=== PATIENT | male | born 1945 | race Caucasian/White ===

== ENCOUNTER 2016-12-28 08:55 | Outpatient (CLI) | payer MEDICARE, OTHER | END 2016-12-28 08:56 | disposition home or self-care (01) | DX: E11.9 Type 2 diabetes mellitus without complications (principal); Z79.899 Other long term (current) drug therapy ==

== ENCOUNTER 2018-04-23 12:42 | Outpatient (CLI) | payer MEDICARE, OTHER ==
[2018-04-23 14:00] LABS: HEMOGLOBIN A1C 0.86 g/dL; HEMOGLOBIN A1C % 7.1 % (4.6-6.2)
== END 2018-04-23 12:43 | disposition home or self-care (01) ==
LOC: LAB 12:42
PROVIDERS: ATTEND Internal Medicine
DX: Z12.5 Encounter for screening for malignant neoplasm of prostate (principal); E11.9 Type 2 diabetes mellitus without complications; Z79.899 Other long term (current) drug therapy
CPT/HCPCS: 36415; 83036; G0103; 84153

== ENCOUNTER → 2018-06-26 | Outpatient (CLI) | payer MEDICARE, OTHER ==
[2018-06-26 18:23] LABS: BILIRUBIN,URINE NEGATIVE (NEGATIVE); CLARITY,URINE CLEAR (CLEAR); GLUCOSE, URINE (UA) NEGATIVE (NEGATIVE); KETONES,URINE (UA) NEGATIVE (NEGATIVE); LEUKOCYTE ESTERASE, URINE NEGATIVE (NEGATIVE); NITRITE,URINE NEGATIVE (NEGATIVE); OCCULT BLOOD,URINE TRACE-INTA (NEGATIVE); PROTEIN,URINE NEGATIVE (NEGATIVE); UROBILINOGEN,URINE 0.2 (NORMAL) E.U./dL (NORMAL)
[2018-06-26 19:10] LABS: BACTERIA,URINE None Seen /HPF (None Seen); RBC,URINE 0-5 /HPF (0-5); SQUAMOUS EPITHELIAL CELL,UR RARE Squamous (<= Few)
== END ==
LOC: LAB.R 08:00
PROVIDERS: ATTEND Physician Assistant Medical
DX: R31.9 Hematuria, unspecified (principal)
CPT/HCPCS: 81001; 87086

== ENCOUNTER 2018-10-04 09:03 | Outpatient (CLI) | payer MEDICARE, OTHER ==
[2018-10-04 09:34] LABS: ALBUMIN 4.2 g/dL (3.2-5.5); ALBUMIN/GLOBULIN RATIO 1.1 (1.0-2.2); ALKALINE PHOSPHATASE 47 IU/L (42-121); ALT ALANINE AMINOTRANSFERASE 41 IU/L (10-60); AST ASPARTATE AMINOTRANSFERASE 50 IU/L (10-42); BILIRUBIN,TOTAL 0.6 mg/dL (0.2-1.0); BUN - BLOOD UREA NITROGEN 12 mg/dL (6-20); CALCIUM 9.3 mg/dL (8.5-10.3); CARBON DIOXIDE - CO2 26 mmol/L (21-32); CHLORIDE 102 mmol/L (101-111); CHOL/HDL RATIO 3.1 (<5.0); CHOLESTEROL 122 mg/dL; CREATININE 0.9 mg/dL (0.6-1.2); GFR - MDRD 82 (>89); GLUCOSE 145 mg/dL (70-100); HDL CHOLESTEROL 40 mg/dL; LDL CHOLESTEROL,CALCULATED 57 mg/dL; LDL/HDL RATIO 1.4 (<3.6); SODIUM 137 mmol/L (135-145); TOTAL PROTEIN 7.9 g/dL (6.7-8.2); VLDL CHOLESTEROL 25 mg/dL
== END 2018-10-04 09:04 | disposition home or self-care (01) ==
LOC: LAB 09:03
PROVIDERS: ATTEND Internal Medicine Cardiovascular Disease
DX: I10 Essential (primary) hypertension (principal); E78.2 Mixed hyperlipidemia
CPT/HCPCS: 36415; 80053; 80061; 83721

== ENCOUNTER 2018-10-13 08:00 | Outpatient (CLI) | payer MEDICARE, OTHER ==
[2018-10-13 16:02] LABS: HB2 TOTAL 15.6 g/dL; HEMOGLOBIN A1C 0.78 g/dL; HEMOGLOBIN A1C % 6.7 % (4.6-6.2)
== END 2018-10-13 23:59 | disposition home or self-care (01) ==
LOC: LAB.R 08:00
PROVIDERS: ATTEND Physician Assistant Medical
DX: E11.9 Type 2 diabetes mellitus without complications (principal); Z79.899 Other long term (current) drug therapy
CPT/HCPCS: 83036

== ENCOUNTER 2019-04-06 09:59 | Outpatient (CLI) | payer MEDICARE, OTHER ==
[2019-04-06 10:18] LABS: CALCIUM 9.8 mg/dL (8.5-10.3); CREATININE 0.9 mg/dL (0.6-1.2)
[2019-04-06 10:34] LABS: HB2 TOTAL 15.1 g/dL; HEMOGLOBIN A1C 0.78 g/dL; HEMOGLOBIN A1C % 6.9 % (4.6-6.2)
== END 2019-04-06 10:00 | disposition home or self-care (01) ==
LOC: LAB 09:59
PROVIDERS: ATTEND Family Medicine
DX: E11.9 Type 2 diabetes mellitus without complications (principal)
CPT/HCPCS: 36415; 80048; 83036

== ENCOUNTER 2020-07-19 09:18 | Outpatient (CLI) | payer MEDICARE, OTHER ==
[2020-07-19 09:31] LABS: BASOPHILS % (AUTO) 0.6 %; EOSINOPHILS # (AUTO) 0.2 10^3/uL (0.0-0.7); EOSINOPHILS % (AUTO) 3.4 %; HGB - HEMOGLOBIN 14.7 g/dL (14.0-18.0); LYMPHOCYTES # (AUTO) 1.7 10^3/uL (1.5-3.5); LYMPHOCYTES % (AUTO) 25.7 %; MEAN CORPUSCULAR HEMOGLOBIN 32.2 pg (27.0-31.0); MEAN CORPUSCULAR HGB CONC 32.9 g/dL (32.0-36.0); MEAN CORPUSCULAR VOLUME 97.8 fL (80.0-94.0); MEAN PLATELET VOLUME 9.9 fL (7.4-11.4); MONOCYTES # (AUTO) 0.8 10^3/uL (0.0-1.0); MONOCYTES % (AUTO) 11.3 %; NEUTROPHILS % (AUTO) 58.7 %; PLT - PLATELET COUNT 214 10^3/uL (130-450); RED BLOOD COUNT 4.57 10^6/uL (4.70-6.10); RED CELL DISTRIBUTION WIDTH 12.2 % (12.0-15.0); WHITE BLOOD COUNT 6.7 x10^3/uL (4.8-10.8)
[2020-07-19 09:48] LABS: ALBUMIN 4.1 g/dL (3.2-5.5); ALBUMIN/GLOBULIN RATIO 1.3 (1.0-2.2); ALKALINE PHOSPHATASE 45 IU/L (42-121); ALT ALANINE AMINOTRANSFERASE 38 IU/L (10-60); AST ASPARTATE AMINOTRANSFERASE 46 IU/L (10-42); BILIRUBIN,TOTAL 0.8 mg/dL (0.2-1.0); BUN - BLOOD UREA NITROGEN 9 mg/dL (6-20); CALCIUM 9.1 mg/dL (8.5-10.3); CARBON DIOXIDE - CO2 25 mmol/L (21-32); CHLORIDE 102 mmol/L (101-111); CHOL/HDL RATIO 3.5 (<5.0); CHOLESTEROL 142 mg/dL; GLUCOSE 149 mg/dL (70-100); HDL CHOLESTEROL 41 mg/dL; LDL CHOLESTEROL,CALCULATED 75 mg/dL; LDL/HDL RATIO 1.8 (<3.6); SODIUM 136 mmol/L (135-145); TOTAL PROTEIN 7.2 g/dL (6.7-8.2); VLDL CHOLESTEROL 26 mg/dL
[2020-07-19 09:56] LABS: CREATININE,URINE 102.4 mg/dL; MICROALBUM/CREATININE RATIO,UR 10.7 ug/mg (<30.0); MICROALBUMIN,URINE 1.1 mg/dL (0-300.0)
[2020-07-19 10:27] LABS: HEMOGLOBIN A1c% 6.8 % (4.27-6.07)
== END 2020-07-19 09:19 | disposition home or self-care (01) ==
LOC: LAB 09:18
PROVIDERS: ATTEND Nurse Practitioner Family
DX: Z00.00 Encounter for general adult medical examination without abnormal findings (principal); I10 Essential (primary) hypertension; E78.2 Mixed hyperlipidemia; E11.9 Type 2 diabetes mellitus without complications
CPT/HCPCS: 36415; 80053; 80061; 82043; 82570; 83036; 83721; 84443; 85025

== ENCOUNTER 2021-04-09 19:53 | Outpatient (CLI) | payer MEDICARE, OTHER | END 2021-04-09 19:54 | disposition short-term general hospital (02) | LOC: EMS 19:53 | DX: R55 Syncope and collapse (principal) | CPT/HCPCS: A0425; A0427 ==

== ENCOUNTER 2021-10-18 10:39 | Outpatient (CLI) | payer MEDICARE, OTHER ==
[2021-10-18 18:26] LABS: MICROALBUM/CREATININE RATIO,UR 6.6 ug/mg (<30.0); MICROALBUMIN,URINE 1.4 mg/dL (0-300.0)
[2021-10-18 18:29] LABS: BASOPHILS # (AUTO) 0.1 10^3/uL (0.0-0.1); BASOPHILS % (AUTO) 0.6 %; EOSINOPHILS # (AUTO) 0.2 10^3/uL (0.0-0.7); EOSINOPHILS % (AUTO) 2.7 %; HCT - HEMATOCRIT 42.2 % (42.0-52.0); HGB - HEMOGLOBIN 13.3 g/dL (14.0-18.0); LYMPHOCYTES % (AUTO) 24.2 %; MEAN CORPUSCULAR HEMOGLOBIN 29.9 pg (27.0-31.0); MEAN CORPUSCULAR HGB CONC 31.5 g/dL (32.0-36.0); MEAN CORPUSCULAR VOLUME 94.8 fL (80.0-94.0); MEAN PLATELET VOLUME 10.7 fL (7.4-11.4); MONOCYTES # (AUTO) 0.8 10^3/uL (0.0-1.0); MONOCYTES % (AUTO) 9.9 %; NEUTROPHILS # (AUTO) 5.3 10^3/uL (1.5-6.6); NEUTROPHILS % (AUTO) 62.4 %; PLT - PLATELET COUNT 247 10^3/uL (130-450); RED BLOOD COUNT 4.45 10^6/uL (4.70-6.10); RED CELL DISTRIBUTION WIDTH 12.6 % (12.0-15.0); WHITE BLOOD COUNT 8.4 x10^3/uL (4.8-10.8)
[2021-10-18 18:59] LABS: ALBUMIN 4.1 g/dL (3.2-5.5); ALBUMIN/GLOBULIN RATIO 1.2 (1.0-2.2); ALKALINE PHOSPHATASE 41 IU/L (42-121); ALT ALANINE AMINOTRANSFERASE 33 IU/L (10-60); AST ASPARTATE AMINOTRANSFERASE 42 IU/L (10-42); BILIRUBIN,TOTAL 0.6 mg/dL (0.2-1.0); BUN - BLOOD UREA NITROGEN 14 mg/dL (6-20); CALCIUM 9.3 mg/dL (8.5-10.3); CARBON DIOXIDE - CO2 28 mmol/L (21-32); CHLORIDE 102 mmol/L (101-111); CHOL/HDL RATIO 2.7 (<5.0); CHOLESTEROL 107 mg/dL; GFR - MDRD 72 (>89); GLUCOSE 136 mg/dL (70-100); HDL CHOLESTEROL 40 mg/dL; LDL CHOLESTEROL,CALCULATED 39 mg/dL; POTASSIUM 4.7 mmol/L (3.5-5.0); SODIUM 139 mmol/L (135-145); TOTAL PROTEIN 7.4 g/dL (6.7-8.2); TRIGLYCERIDES 138 mg/dL; VLDL CHOLESTEROL 28 mg/dL
[2021-10-19 17:17] LABS: ESTIMATED AVERAGE GLUCOSE 183 mg/dL (70-100)
== END 2021-10-18 23:59 | disposition home or self-care (01) ==
LOC: LAB.WCP 10:39
PROVIDERS: ATTEND Family Medicine
DX: E11.9 Type 2 diabetes mellitus without complications (principal); Z12.5 Encounter for screening for malignant neoplasm of prostate; N40.0 Benign prostatic hyperplasia without lower urinary tract symptoms
CPT/HCPCS: 36415; 80053; 80061; 82043; 82570; 83036; 85025; G0103; 83721; 84153

== ENCOUNTER 2022-02-23 15:04 | Outpatient (CLI) | payer MEDICARE, OTHER ==
[2022-02-23 15:38] LABS: CALCIUM 9.8 mg/dL (8.5-10.3); CREATININE 1.1 mg/dL (0.6-1.2); POTASSIUM 4.7 mmol/L (3.5-5.0)
[2022-02-23 15:55] LABS: MICROALBUMIN,URINE 1.1 mg/dL (0-300.0)
[2022-02-23 22:11] LABS: ESTIMATED AVERAGE GLUCOSE 140 mg/dL (70-100); HEMOGLOBIN A1c% 6.5 % (4.27-6.07)
== END 2022-02-23 15:05 | disposition home or self-care (01) ==
LOC: LAB 15:04
PROVIDERS: ATTEND Family Medicine
DX: E11.65 Type 2 diabetes mellitus with hyperglycemia (principal)
CPT/HCPCS: 36415; 80048; 82043; 82570; 83036

== ENCOUNTER 2022-11-23 08:54 | Outpatient (CLI) | payer MEDICARE, OTHER ==
[2022-11-23 09:16] LABS: BASOPHILS # (AUTO) 0.1 10^3/uL (0.0-0.1); BASOPHILS % (AUTO) 0.6 %; EOSINOPHILS # (AUTO) 0.4 10^3/uL (0.0-0.7); EOSINOPHILS % (AUTO) 4.1 %; HCT - HEMATOCRIT 42.1 % (42.0-52.0); HGB - HEMOGLOBIN 13.7 g/dL (14.0-18.0); LYMPHOCYTES # (AUTO) 2.5 10^3/uL (1.5-3.5); LYMPHOCYTES % (AUTO) 26.2 %; MEAN CORPUSCULAR HEMOGLOBIN 30.1 pg (27.0-31.0); MEAN CORPUSCULAR HGB CONC 32.5 g/dL (32.0-36.0); MEAN CORPUSCULAR VOLUME 92.5 fL (80.0-94.0); MEAN PLATELET VOLUME 9.9 fL (7.4-11.4); MONOCYTES % (AUTO) 10.4 %; NEUTROPHILS # (AUTO) 5.5 10^3/uL (1.5-6.6); NEUTROPHILS % (AUTO) 58.4 %; PLT - PLATELET COUNT 234 10^3/uL (130-450); RED BLOOD COUNT 4.55 10^6/uL (4.70-6.10); RED CELL DISTRIBUTION WIDTH 12.7 % (12.0-15.0); WHITE BLOOD COUNT 9.4 x10^3/uL (4.8-10.8)
[2022-11-23 09:34] LABS: CREATININE,URINE 95.3 mg/dL; MICROALBUM/CREATININE RATIO,UR 6.3 ug/mg (<30.0); MICROALBUMIN,URINE 0.6 mg/dL (0-300.0)
[2022-11-23 09:36] LABS: ALBUMIN/GLOBULIN RATIO 1.2 (1.0-2.2); ALKALINE PHOSPHATASE 43 IU/L (42-121); ALT ALANINE AMINOTRANSFERASE 25 IU/L (10-60); AST ASPARTATE AMINOTRANSFERASE 35 IU/L (10-42); BILIRUBIN,TOTAL 0.8 mg/dL (0.2-1.0); BUN - BLOOD UREA NITROGEN 11 mg/dL (6-20); CALCIUM 9.5 mg/dL (8.5-10.3); CARBON DIOXIDE - CO2 26 mmol/L (21-32); CHLORIDE 103 mmol/L (101-111); CHOL/HDL RATIO 2.8 (<5.0); CHOLESTEROL 130 mg/dL; GFR - MDRD 72 (>89); GLUCOSE 139 mg/dL (70-100); HDL CHOLESTEROL 47 mg/dL; LDL CHOLESTEROL,CALCULATED 51 mg/dL; LDL/HDL RATIO 1.1 (<3.6); POTASSIUM 4.6 mmol/L (3.5-5.0); SODIUM 138 mmol/L (135-145); TOTAL PROTEIN 7.4 g/dL (6.7-8.2); TRIGLYCERIDES 159 mg/dL; VLDL CHOLESTEROL 32 mg/dL
[2022-11-23 09:49] LABS: THYROID STIMULATING HORMONE 2.32 uIU/mL (0.34-5.60)
[2022-11-23 10:39] LABS: ESTIMATED AVERAGE GLUCOSE 154 mg/dL (70-100)
== END 2022-11-23 08:55 | disposition home or self-care (01) ==
LOC: LAB 08:54
PROVIDERS: ATTEND Family Medicine
DX: I10 Essential (primary) hypertension (principal); E11.65 Type 2 diabetes mellitus with hyperglycemia; N40.1 Benign prostatic hyperplasia with lower urinary tract symptoms; D12.5 Benign neoplasm of sigmoid colon; J44.9 Chronic obstructive pulmonary disease, unspecified; I25.10 Atherosclerotic heart disease of native coronary artery without angina pectoris; E78.2 Mixed hyperlipidemia; Z95.5 Presence of coronary angioplasty implant and graft
CPT/HCPCS: 36415; 80053; 80061; 82043; 82570; 83036; 83721; 84153; 84443; 85025

== ENCOUNTER 2023-05-06 08:00 | Outpatient (CLI) | payer MEDICARE, OTHER ==
[2023-05-06 18:31] LABS: BILIRUBIN,URINE NEGATIVE (NEGATIVE); GLUCOSE, URINE (UA) NEGATIVE (NEGATIVE); KETONES,URINE (UA) NEGATIVE (NEGATIVE); LEUKOCYTE ESTERASE, URINE TRACE (NEGATIVE); NITRITE,URINE NEGATIVE (NEGATIVE); OCCULT BLOOD,URINE NEGATIVE (NEGATIVE); PH,URINE 5.5 PH (5.0-7.5); PROTEIN,URINE NEGATIVE (NEGATIVE); UROBILINOGEN,URINE 0.2 (NORMAL) E.U./dL (NORMAL)
[2023-05-06 19:04] LABS: BACTERIA,URINE None Seen /HPF (None Seen); CLARITY,URINE CLEAR (CLEAR); RBC,URINE None Seen /HPF (0-5); SQUAMOUS EPITHELIAL CELL,UR RARE Squamous (<= Few)
== END 2023-05-06 23:59 | disposition home or self-care (01) ==
LOC: LAB.WCP 08:00
PROVIDERS: ATTEND Internal Medicine
DX: N40.1 Benign prostatic hyperplasia with lower urinary tract symptoms (principal)
CPT/HCPCS: 81001; 87086

== ENCOUNTER 2023-09-13 08:37 | Outpatient (CLI) | payer MEDICARE, OTHER ==
[2023-09-13 09:09] LABS: CALCIUM 9.6 mg/dL (8.5-10.3); POTASSIUM 4.4 mmol/L (3.5-4.5)
[2023-09-13 11:14] LABS: ESTIMATED AVERAGE GLUCOSE 137 mg/dL (70-100); HEMOGLOBIN A1c% 6.4 % (4.27-6.07)
== END 2023-09-13 08:38 | disposition home or self-care (01) ==
LOC: LAB 08:37
PROVIDERS: ATTEND Family Medicine
DX: E11.9 Type 2 diabetes mellitus without complications (principal)
CPT/HCPCS: 36415; 80048; 83036

== ENCOUNTER 2023-11-28 13:51 | Emergency (ER) | payer MEDICARE, OTHER ==
[2023-11-28 14:43] LABS: BASOPHILS % (AUTO) 0.5 %; EOSINOPHILS # (AUTO) 0.3 10^3/uL (0.0-0.7); EOSINOPHILS % (AUTO) 3.4 %; HCT - HEMATOCRIT 41.9 % (42.0-52.0); HGB - HEMOGLOBIN 13.5 g/dL (14.0-18.0); LYMPHOCYTES # (AUTO) 2.1 10^3/uL (1.5-3.5); LYMPHOCYTES % (AUTO) 23.9 %; MEAN CORPUSCULAR HEMOGLOBIN 30.2 pg (27.0-31.0); MEAN CORPUSCULAR HGB CONC 32.2 g/dL (32.0-36.0); MEAN CORPUSCULAR VOLUME 93.7 fL (80.0-94.0); MEAN PLATELET VOLUME 10.1 fL (7.4-11.4); MONOCYTES # (AUTO) 1.1 10^3/uL (0.0-1.0); MONOCYTES % (AUTO) 12.8 %; NEUTROPHILS # (AUTO) 5.2 10^3/uL (1.5-6.6); NEUTROPHILS % (AUTO) 59.2 %; PLT - PLATELET COUNT 221 10^3/uL (130-450); RED BLOOD COUNT 4.47 10^6/uL (4.70-6.10); RED CELL DISTRIBUTION WIDTH 12.6 % (12.0-15.0); WHITE BLOOD COUNT 8.8 x10^3/uL (4.8-10.8)
[2023-11-28 14:47] LABS: BILIRUBIN,URINE NEGATIVE (NEGATIVE); GLUCOSE, URINE (UA) NEGATIVE (NEGATIVE); KETONES,URINE (UA) NEGATIVE (NEGATIVE); LEUKOCYTE ESTERASE, URINE TRACE (NEGATIVE); NITRITE,URINE NEGATIVE (NEGATIVE); OCCULT BLOOD,URINE SMALL (NEGATIVE); PROTEIN,URINE NEGATIVE (NEGATIVE); UROBILINOGEN,URINE 0.2 (NORMAL) E.U./dL (NORMAL)
[2023-11-28 14:49] LABS: CLARITY,URINE CLEAR (CLEAR)
[2023-11-28 15:00] LABS: ALBUMIN 4.4 g/dL (3.2-5.5); ALBUMIN/GLOBULIN RATIO 1.5 (1.0-2.2); BILIRUBIN,TOTAL 0.4 mg/dL (0.2-1.0); CALCIUM 9.9 mg/dL (8.5-10.3); POTASSIUM 4.2 mmol/L (3.5-4.5); TOTAL PROTEIN 7.3 g/dL (6.4-8.9)
[2023-11-28 15:07] LABS: BACTERIA,URINE None Seen /HPF (None Seen); SQUAMOUS EPITHELIAL CELL,UR RARE Squamous (<= Few)
[2023-11-28 15:52] VITALS: O2SAT 98
--- NOTE | 2023-11-28 16:02 | ED Physician Documentation ---
PD HPI ABD PAIN - Stated complaint Stated Complaint: BACK/ABD PX - Chief complaint Chief Complaint: Abd Pain - Additional information Additional information: 78-year-old male presents emergency department for increased abdominal pain that radiates to his back. Patient says that he went to his primary care provider for routine check and today was concerned of his worsening abdominal pain he also has a history of a abdominal aneurysm that he was worried about him that could be growing. He said this has been going on now for some months but over the last several days (patient unable to quantify the amount of days) he has been having increased lower abdominal pain. No fevers or chills. Patient denies any pain with urination says he is always voiding small frequent amounts because he has enlarged prostate. PD PAST MEDICAL HISTORY - Past Medical History Cardiovascular: Hypertension, High cholesterol, Coronary artery disease, Other Respiratory: COPD, Emphysema Endocrine/Autoimmune: Type 2 diabetes : Benign prostate hypertrophy HEENT: Other - Past Surgical History Cardiovascular: Coronary stent Neuro: Other - Present Medications Home Medications: Ambulatory Orders Medication Instructions Recorded Confirmed Ezetimibe [Zetia] 10 mg PO QD 06/01/16 11/28/23 Fluoxetine HCl 20 mg PO DAILY 06/01/16 11/28/23 Metformin HCl 500 mg PO DAILY 06/01/16 11/28/23 Metoprolol Succinate 100 mg PO DAILY 06/01/16 11/28/23 Multivitamin [Multivitamins] 1 each PO DAILY 06/01/16 11/28/23 NIFEdipine [Procardia Xl] 30 mg PO DAILY 06/01/16 11/28/23 Nitroglycerin [Nitrostat] 0.4 mg SL Q5MIN PRN 06/01/16 11/28/23 Ramipril 2.5 mg PO DAILY 06/01/16 11/28/23 Rosuvastatin Calcium [Crestor] 40 mg PO DAILY 06/01/16 11/28/23 Cefuroxime Axetil [Cefuroxime] 500 mg PO BID 7 Days #14 tablet 11/28/23 Glimepiride [Amaryl] 2 mg PO DAILY 11/28/23 11/28/23 Latanoprost 0.005% Ophth Drops 1 drops OPTH QPM 11/28/23 11/28/23 [Xalatan Ophth Drops] Tamsulosin [Flomax] 1 cap PO DAILY 11/28/23 11/28/23 - Allergies Allergies/Adverse Reactions: Allergies Allergy/AdvReac Type Severity Reaction Status Date / Time codeine Allergy Diaphoresis Verified 11/28/23 14:20 - Social History Smoking Status: Former smoker PD ED PE NORMAL - Vitals Vital signs reviewed: Yes - General General: Alert and oriented X 3, No acute distress, Well developed/nourished - HEENT HEENT: Atraumatic - Neck Neck: Supple, no meningeal sign - Cardiac Cardiac: RRR - Respiratory Respiratory: No respiratory distress - Abdomen Abdomen: Normal bowel sounds, No organomegaly, Other (Distended abdomen tenderness with palpation throughout) - Back Back: No CVA TTP - Derm Derm: Normal color, Warm and dry, No rash - Extremities Extremities: No edema - Neuro Neuro: Alert and oriented X 3, steam cleaner 2-12 intact, No motor deficit, Normal speech Eye Opening: Spontaneous Motor: Obeys Commands Verbal: Oriented GCS Score: 15 - Psych Psych: Normal mood Results - Vitals Vitals: Vital Signs - 24 hr 11/28/23 11/28/23 11/28/23 14:06 15:52 17:00 Temperature 36.2 C L Heart Rate 68 57 L 75 Respiratory 19 16 16 Rate Blood Pressure 141/70 H 159/74 H 152/74 H O2 Saturation 100 98 98 11/28/23 11/28/23 19:00 21:00 Temperature Heart Rate 60 60 Respiratory 15 20 Rate Blood Pressure 151/67 H 165/73 H O2 Saturation 99 98 Oxygen O2 Source Room air - Labs Labs: Laboratory Tests 11/28/23 11/28/23 11/28/23 14:00 14:38 14:38 WBC 8.8 RBC 4.47 L Hgb 13.5 L Hct 41.9 L MCV 93.7 MCH 30.2 MCHC 32.2 RDW 12.6 Plt Count 221 MPV 10.1 Neut # (Auto) 5.2 Lymph # (Auto) 2.1 Pender # (Auto) 1.1 H Eos # (Auto) 0.3 Baso # (Auto) 0.0 Absolute Nucleated RBC 0.00 Nucleated RBC % 0.0 Sodium 138 Potassium 4.2 Chloride 103 Carbon Dioxide 28 Anion Gap 7.0 BUN 13 Creatinine 1.0 Estimated GFR (MDRD) 72 L Glucose 120 H Calcium 9.9 Total Bilirubin 0.4 AST 29 ALT 19 Alkaline Phosphatase 49 Total Protein 7.3 Albumin 4.4 Globulin 2.9 Albumin/Globulin Ratio 1.5 Lipase 51 Urine Color YELLOW Urine Clarity CLEAR Urine pH 6.0 Ur Specific [place] 1.020 Urine Protein NEGATIVE Urine Glucose (UA) NEGATIVE Urine Ketones NEGATIVE Urine Occult Blood SMALL H Urine Nitrite NEGATIVE Urine Bilirubin NEGATIVE Urine Urobilinogen 0.2 (NORMAL) Ur Leukocyte Esterase TRACE H Urine RBC 11-25 H Urine WBC 4-5 Ur Squamous Epith Cells RARE Squamous Urine Bacteria None Seen Ur Microscopic Review INDICATED Urine Culture Comments INDICATED - Rads (name of study) CTA chest abd pelvis Relevant Findings:: Final report received, EMP independent interpretation of test, Other (very enlarged filled bladder, prostatomegaly, Moderate right hydroureteronephrosis ) PD Medical Decision Making - ED course ED course: 78-year-old male presents emergency department for abdominal pain radiating to his back. CTA chest on pelvis was complete because patient was worried about a worsening enlarged abdominal aneurysm. There was no aortic aneurysm and no acute aortic syndrome he did have mild cardiomegaly with coronary artery calcifications. Mild ectasia of the infrarenal abdominal aorta without aneurysmal dilatation or acute aortic syndrome. Most pertinent finding was that there was significant prostatomegaly as well as moderate right hydroureteronephrosis and very overly distended bladder. PVR was complete and was found to be at over 1300 cc. Labs are also complete no leukocytosis mild anemia, hemoglobin 13.5, no electrolyte abnormalities GFR 72 BUN and creatinine are unremarkable. Urinalysis was also completed which found to have leukocytes concerning for urinary tract infection. Donahue catheter was placed patient was sent home with Donahue catheter patient was also started on antibiotics cefuroxime and told to follow-up with urology outpatient and to let his primary care provider know about the new findings. Patient was updated of the enlarged prostate and that this needs further investigation by urology prescription sent to his preferred pharmacy he was told to continue his Flomax. They were given strict ER return precautions and taught how to manage his Donahue catheter at home. Departure - Departure Disposition: 01 Home, Self Care Clinical Impression: Urinary retention, Enlarged prostate, Indwelling Donahue catheter present UTI (urinary tract infection) Qualifiers: Urinary tract infection type: acute cystitis Hematuria presence: without hematuria Qualified Code(s): N30.00 - Acute cystitis without hematuria Instructions: ED Catheter Care Donahue Follow-Up: Magdy Vasquez MD [Provider Admit Priv/Credential] - Prescriptions: Cefuroxime Axetil [Cefuroxime] 500 mg PO BID 7 Days #14 tablet Comments: Thank you for trusting us with your care. We have completed a CT scan and we have found that you have a very large bladder as well as an enlarged prostate causing you to not urinate properly because of this we have placed a Donahue catheter in. You are also found to have a urinary tract infection. We have started you on an antibiotic called cefuroxime you will take this twice a day for the next 7 days. You need to follow-up with urology as soon as possible I have put a referral in for our local urologist Dr. Vasquez but often times you need to follow-up with your primary care provider for urology referral because most times they do not take the referral from the emergency department. Please call your primary care provider tomorrow first thing in the morning and let them know about your ER findings. I have attached below the radiology report from the CT scan as we discussed earlier. Please come back to the emergency department if your Donahue is not putting out urine, if you start develop any fevers or chills nausea vomiting, or any other concerning symptoms. Continue your Flomax that you are already taking for your enlarged prostate. TECHNIQUE: After the administration of intravenous contrast, 2.5 mm thick sections acquired from the diaphragm to the symphysis. 10 mm maximum-intensity projection (MIP) reformats were then acquired. For radiation dose reduction, the following was used: automated exposure control, adjustment of mA and/or kV according to patient size. COMPARISON: No previous study is available for comparison. FINDINGS: Image quality: Excellent. Aorta: Mild ectasia of the infrarenal abdominal aorta measuring up to 2.3 x 2.4 cm in diameter. No aneurysmal dilatation is seen. No acute dissection or intramural hematoma. Moderate to severe aortic and iliac atherosclerotic calcifications are present. Mesenteric arteries: Atherosclerotic calcifications are seen at the origin of the celiac trunk with mild narrowing estimated at less than 50%. Mild atherosclerotic calcifications are seen at the origins of the superior and inferior mesenteric arteries without hemodynamically significant stenosis. Calcifications are seen at the origins of the renal arteries bilaterally. Right pelvic arteries: Moderate atherosclerotic calcifications in the common iliac artery. Mild atherosclerotic plaque at the internal and external iliac arteries without significant stenosis. The proximal common femoral, superficial femoral, and deep femoral arteries are patent. Left pelvic arteries: Moderate atherosclerotic calcifications in the common iliac artery. Mild atherosclerotic plaque at the internal and external iliac arteries without significant stenosis. The proximal common femoral, superficial femoral, and deep femoral arteries are patent. Extravascular soft tissues: Lung bases are clear. Heart size is normal. Liver and spleen are normal in size and enhancement. Gallbladder contains a single punctate calcified gallstone without acute inflammatory changes. Biliary system is non dilated. Pancreas enhances normally. No adrenal nodules. Moderate right hydroureteronephrosis to the level of the uret erovesicular junction without an obstructing calculus visualized. No significant left hydronephrosis or left hydroureter. Non opacified bowel loops are normal in wall thickness and caliber. Multiple diverticula are seen in the colon without signs of acute diverticulitis. No free fluid or air. No retroperitoneal or mesenteric adenopathy. No ventral hernias. There is marked dilation of the urinary bladder. Small bladder diverticula are present. The prostate is enlarged and contains coarse calcifications. Small fat-containing inguinal hernias. No suspicious bony lesions. No vertebral body compression fractures. IMPRESSION: 1.Mild ectasia of the infrarenal abdominal aorta without aneurysmal dilatation or acute aortic syndrome. 2.Marked dilation of the urinary bladder extending above the level of the umbilicus, likely related to bladder outlet obstruction. 3.Moderate right hydroureteronephrosis without an obstructing calculus, possibly related to bladder distention. No left-sided hydronephrosis. 4.Prostatomegaly. 5.Colonic diverticulosis. 6.Cholelithiasis. TECHNIQUE: After the administration of intravenous contrast, 2 mm axial images were acquired from the pulmonary apices to the posterior costophrenic angles during the arterial phase. In addition, 1 mm lung kernel and 5 mm soft tissue kernel reconstructions were performed. 3-dimensional coronal oblique maximum intensity projection (MIP) reformats, 8 mm axial MIP, and 5 mm coronal and sagittal MPR reformats were then performed through the thorax. For radiation dose reduction, the following was used: automated exposure control, adjustment of mA and/or kV according to patient size. COMPARISON: Chest radiograph 04/16/2014. FINDINGS: Image quality: Excellent. Large vessels: No filling defects within the opacified pulmonary arteries, although the pulmonary arteries are poorly opacified on this exam that is timed for evaluation of the aorta. No evidence of acute aortic syndrome or aortic aneurysm. Mild aortic atherosclerotic calcifications. Lungs and pleura: No acute consolidation. Moderate centrilobular emphysema. No pleural effusions. No pneumothorax. No suspicious pulmonary nodules which require follow up. Mediastinum: Heart size is mildly enlarged. Three-vessel coronary artery calcifications are present. No pericardial effusion. No large vessel abnormality. No mediastinal adenopathy by size criteria. Chest wall and lower neck: A cardiac pacemaker is seen with pulse generator in the left chest. Thyroid is unremarkable. No axillary or supraclavicular adenopathy by size. Bones: No aggressive osseous abnormality. Upper Abdomen: Please see separate dictation from CTA of the abdomen and pelvis performed at same time.. IMPRESSION: 1.No aortic aneurysm or acute aortic syndrome. 2.Mild cardiomegaly. Moderate coronary artery calcifications. 3.Moderate centrilobular emphysema. No acute pulmonary consolidation. Forms: PCP List Discharge Date/Time: 11/28/23 21:46
[2023-11-28] MEDS ORDERED: iohexoL-300 100 ML VIAL ONE (17:05)
--- NOTE | 2023-11-28 18:24 | CT Report ---
PROCEDURE: Angio Abdomen/Pelvis INDICATIONS: History of abdominal aneurysm, worsening abdominal CONTRAST: 100mL Omni 300 TECHNIQUE: After the administration of intravenous contrast, 2.5 mm thick sections acquired from the diaphragm t o the symphysis. 10 mm maximum-intensity projection (MIP) reformats were then acquired. For radiati on dose reduction, the following was used: automated exposure control, adjustment of mA and/or kV ac cording to patient size. COMPARISON: No previous study is available for comparison. FINDINGS: Image quality: Excellent. Aorta: Mild ectasia of the infrarenal abdominal aorta measuring up to 2.3 x 2.4 cm in diameter. No a neurysmal dilatation is seen. No acute dissection or intramural hematoma. Moderate to severe aortic a nd iliac atherosclerotic calcifications are present. Mesenteric arteries: Atherosclerotic calcifications are seen at the origin of the celiac trunk with m ild narrowing estimated at less than 50%. Mild atherosclerotic calcifications are seen at the origins of the superior and inferior mesenteric arteries without hemodynamically significant stenosis. Calci fications are seen at the origins of the renal arteries bilaterally. Right pelvic arteries: Moderate atherosclerotic calcifications in the common iliac artery. Mild athe rosclerotic plaque at the internal and external iliac arteries without significant stenosis. The prox imal common femoral, superficial femoral, and deep femoral arteries are patent. Left pelvic arteries: Moderate atherosclerotic calcifications in the common iliac artery. Mild ather osclerotic plaque at the internal and external iliac arteries without significant stenosis. The proxi mal common femoral, superficial femoral, and deep femoral arteries are patent. Extravascular soft tissues: Lung bases are clear. Heart size is normal. Liver and spleen are luann l in size and enhancement. Gallbladder contains a single punctate calcified gallstone without acute inflammatory changes. Biliary system is non dilated. Pancreas enhances normally. No adrenal nodule s. Moderate right hydroureteronephrosis to the level of the ureterovesicular junction without an obs tructing calculus visualized. No significant left hydronephrosis or left hydroureter. Non opacified b owel loops are normal in wall thickness and caliber. Multiple diverticula are seen in the colon with out signs of acute diverticulitis. No free fluid or air. No retroperitoneal or mesenteric adenopathy . No ventral hernias. There is marked dilation of the urinary bladder. Small bladder diverticula are present. The prostate is enlarged and contains coarse calcifications. Small fat-containing inguinal hernias. No suspicious bony lesions. No vertebral body compression fractures. IMPRESSION: 1.Mild ectasia of the infrarenal abdominal aorta without aneurysmal dilatation or acute aortic syndro me. 2.Marked dilation of the urinary bladder extending above the level of the umbilicus, likely related t o bladder outlet obstruction. 3.Moderate right hydroureteronephrosis without an obstructing calculus, possibly related to bladder d istention. No left-sided hydronephrosis. 4.Prostatomegaly. 5.Colonic diverticulosis. 6.Cholelithiasis. Reviewed by: Francis Danielson MD on 11/28/2023 6:23 PM PST Approved by: Francis Danielson MD on 11/28/2023 6:23 PM PST Station ID: [id number]
--- NOTE | 2023-11-28 18:29 | CT Report ---
PROCEDURE: Angio Chest INDICATIONS: History of abdominal aneurysm, worsening abdominal CONTRAST: 100mL Omni 300 TECHNIQUE: After the administration of intravenous contrast, 2 mm axial images were acquired from the pulmonary apices to the posterior costophrenic angles during the arterial phase. In addition, 1 mm lung kernel and 5 mm soft tissue kernel reconstructions were performed. 3-dimensional coronal oblique maximum int ensity projection (MIP) reformats, 8 mm axial MIP, and 5 mm coronal and sagittal MPR reformats were t hen performed through the thorax. For radiation dose reduction, the following was used: automated exp osure control, adjustment of mA and/or kV according to patient size. COMPARISON: Chest radiograph 04/16/2014. FINDINGS: Image quality: Excellent. Large vessels: No filling defects within the opacified pulmonary arteries, although the pulmonary art eries are poorly opacified on this exam that is timed for evaluation of the aorta. No evidence of acu te aortic syndrome or aortic aneurysm. Mild aortic atherosclerotic calcifications. Lungs and pleura: No acute consolidation. Moderate centrilobular emphysema. No pleural effusions. No pneumothorax. No suspicious pulmonary nodules which require follow up. Mediastinum: Heart size is mildly enlarged. Three-vessel coronary artery calcifications are present. No pericardial effusion. No large vessel abnormality. No mediastinal adenopathy by size criteria. Chest wall and lower neck: A cardiac pacemaker is seen with pulse generator in the left chest. Thyroi d is unremarkable. No axillary or supraclavicular adenopathy by size. Bones: No aggressive osseous abnormality. Upper Abdomen: Please see separate dictation from CTA of the abdomen and pelvis performed at [facility] IMPRESSION: 1.No aortic aneurysm or acute aortic syndrome. 2.Mild cardiomegaly. Moderate coronary artery calcifications. 3.Moderate centrilobular emphysema. No acute pulmonary consolidation. Reviewed by: Francis Danielson MD on 11/28/2023 6:28 PM PST Approved by: Francis Danielson MD on 11/28/2023 6:28 PM PST Station ID: [id number]
[2023-11-28] MEDS: LIDOCAINE 2% URO-JET 5 ML SYRINGE UR STA ×2 (20:05)
[2023-11-28] MEDS: cefuroxime axetiL 250 MG TABLET PO SCH (20:55)
[2023-11-28 21:51] VITALS: BP 165/73
[2023-11-28] MEDS: iohexoL-300 100 ML VIAL IVP ONE (22:45)
== END 2023-11-28 21:46 | disposition home or self-care (01) ==
LOC: ED 13:51
DX: N40.1 Benign prostatic hyperplasia with lower urinary tract symptoms (principal); R33.8 Other retention of urine; N13.30 Unspecified hydronephrosis; N30.00 Acute cystitis without hematuria; I10 Essential (primary) hypertension; E78.00 Pure hypercholesterolemia, unspecified; J44.9 Chronic obstructive pulmonary disease, unspecified; J43.9 Emphysema, unspecified; E11.9 Type 2 diabetes mellitus without complications; Z79.899 Other long term (current) drug therapy; Z79.84 Long term (current) use of oral hypoglycemic drugs; Z87.891 Personal history of nicotine dependence
CPT/HCPCS: 36415; 51702; 71275; 74174; 80053; 81001; 83690; 85025; 87086; 99284; A9270; Q9967; 81003; 83735

== ENCOUNTER 2024-02-28 10:52 | Outpatient (CLI) | payer MEDICARE, OTHER ==
--- NOTE | 2024-02-28 12:17 | XRAY Report ---
PROCEDURE: Chest 2V INDICATIONS: WHEEZING TECHNIQUE: 2 views of the chest were acquired. COMPARISON: CT chest 11/28/2023 FINDINGS: Surgical changes and devices: Pacemaker. Lungs and pleura: No pleural effusions or pneumothorax. Lungs are clear. Mediastinum: Mediastinal contours appear normal. Heart size is mildly enlarged. Bones and chest wall: No suspicious bony lesions. Overlying soft tissues appear unremarkable. IMPRESSION: No acute cardiopulmonary process. Reviewed by: Otilia Acevedo MD on 02/28/2024 12:16 PM PDT Approved by: Otilia Acevedo MD on 02/28/2024 12:16 PM PDT Station ID: [id number]
== END 2024-02-28 10:53 | disposition home or self-care (01) ==
LOC: DI 10:52
PROVIDERS: ATTEND Family Medicine
DX: R06.2 Wheezing (principal)

== ENCOUNTER 2024-03-15 09:42 | Outpatient (CLI) | payer MEDICARE, OTHER ==
--- NOTE | 2024-03-15 18:11 | Ultrasound Report ---
PROCEDURE: Renal (Retroperitoneal) INDICATIONS: URINARY RETENTION TECHNIQUE: Real-time scanning was performed of the retroperitoneal organs, with image documentation. COMPARISON: None. FINDINGS: Right kidney measures 11 cm left kidney measures 11 cm. Mild to moderate cortical thinning bilaterally. No significant hydronephrosis. Both ureteral jets were visualized. Post void residual 140 cc. There is wall thickening of the urinary bladder. The prostate is borderline enlarged measuring up to 4.8 x 4 cm. IMPRESSION: No significant hydronephrosis. Both ureteral jets are visualized. Post void residual 140 cc. Mild nonspecific bladder wall thickenin g could be better evaluated with cystoscopy, possibly due to chronic obstruction. Borderline prostate. Reviewed by: Win Clark MD on 03/15/2024 6:09 PM PDT Approved by: Win Clark MD on 03/15/2024 6:09 PM PDT Station ID: [id number]
== END 2024-03-15 09:43 | disposition home or self-care (01) ==
LOC: DI 09:42
PROVIDERS: ATTEND Urology
DX: N40.1 Benign prostatic hyperplasia with lower urinary tract symptoms (principal); R33.8 Other retention of urine